=== PATIENT | female | born 1985 | race Caucasian/White ===

== ENCOUNTER 2020-06-13 15:21 | Emergency (ER) | payer BC ==
[2020-06-13 16:13] LABS: Absolute Lymphocytes (CBC) 1.9 K/uL (0.7-4.9); Basophils % 0.8 % (0-1.3); Hematocrit 34.4 % (36.0-45.0); Lymphocytes % 18.4 % (15.3-44.8); RBC Red Blood Cell Count 4.38 M/uL (3.86-4.86)
[2020-06-13 16:24] LABS: ALT/SGPT 16 U/L (12-78); AST/SGOT 14 U/L (15-37); Albumin 3.7 g/dL (3.4-5.0); Alkaline Phosphatase 62 U/L (45-117); BUN Blood Urea Nitrogen 19 mg/dL (7-18); Bicarbonate 27 mmol/L (21-32); Bilirubin Direct < 0.1 mg/dL (0-0.2); Bilirubin Total 0.3 mg/dL (0.2-1.0); Glucose Level 91 mg/dL (74-106); Lipase 302 U/L (73-393); Protein, Total 7.3 g/dL (6.4-8.2); Sodium Level 140 mmol/L (136-145)
[2020-06-13 16:31] LABS: Urine Blood NEGATIVE (NEG); Urine Glucose NEGATIVE (NEG); Urine Protein NEGATIVE (NEG); Urine Specific Gravity 1.025 (1.005-1.030); Urine pH 6.5 (5.0-7.0)
--- NOTE | 2020-06-13 16:34 | RAD REPORT ---
EXAM DESCRIPTION: CT - Stone Protocol - 06/13/2020 4:15 pm CLINICAL HISTORY: Abdominal pain. Left flank pain COMPARISON: Ultrasound June 13, 2020 TECHNIQUE: Computed axial tomography of the abdomen pelvis was obtained without oral or IV contrast. Lack of IV and oral contrast limits evaluation of solid organs, bowel, and vessels. Coronal reformat gregor images were obtained and reviewed. All CT scans are performed using dose optimization technique as appropriate and may include automated exposure control or mA/KV adjustment according to patient size. FINDINGS: Marked left hydronephrosis. A 10 millimeter calculus mid left ureter Hounsfield unit 1435. 2.8 centimeter right renal cyst. The liver, spleen, pancreas and adrenals appear grossly normal Postsurgical changes involve the stomach. Cholecystectomy There is no evidence of diverticulitis. The appendix appears normal IMPRESSION: A 10 millimeter calculus mid left ureter resulting in marked left hydronephrosis
--- NOTE | 2020-06-13 16:53 | ER ---
Nurse's Notes [facility] Name: Eva Rascon Age: 34 yrs Sex: Female : 1985 Arrival Date: 06/13/2020 Time: 15:22 Bed 20 [facility] MD: Diagnosis: Calculus of kidney with calculus of ureter Presentation: 06/13 15:27 Chief complaint: Patient states: "My left kidney is really hurting. I do have a history jd3 of kidney stones.". Coronavirus screen: At this time, the client does not indicate any symptoms associated with coronavirus-19. Ebola Screen: Patient negative for fever greater than or equal to 101.5 degrees Fahrenheit, and additional compatible Ebola Virus Disease symptoms. Initial Sepsis Screen: Does the patient meet any 2 criteria? No. Patient's initial sepsis screen is negative. Does the patient have a suspected source of infection? No. Patient's initial sepsis screen is negative. Risk Assessment: Do you want to hurt yourself or someone else? Patient reports no desire to harm self or others. Onset of symptoms was June 13, 2020. 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 - Social history:: Smoking status: Patient denies any tobacco usage or history of. Screenin:37 Abuse screen: Denies threats or abuse. Nutritional screening: No deficits noted. rb3 Tuberculosis screening: No symptoms or risk factors identified. Fall Risk None identified. Assessment: 15:37 General: Appears in no apparent distress. comfortable, Behavior is calm, cooperative, rb3 Denies fever. Pain: Complains of pain in left flank. Neuro: Level of Consciousness is awake, alert, obeys commands, Oriented to person, place, time, situation. Cardiovascular: Patient's skin is warm and dry. Respiratory: Airway is patent Respiratory effort is even, unlabored, Respiratory pattern is regular, symmetrical. GI: Reports nausea. : Reports Tea colored urine. Has been having discomfort off and on for some time. 16:10 Reassessment: Pt. went to CT. rb3 16:35 Reassessment: Patient appears in no apparent distress at this time. No changes from rb3 previously documented assessment. 17:17 Reassessment: Patient appears in no apparent distress at this time. Patient and/or rb3 family updated on plan of care and expected duration. Pain level reassessed. Patient is alert, oriented x 3, equal unlabored respirations, skin warm/dry/pink. Vital Signs: 15:30 BP 132 / 86; Pulse 76; Resp 16 S; Temp 97.9(TE); Pulse Ox 99% on R/A; Weight 98.88 kg jd3 (R); Height 5 ft. 8 in. (172.72 cm) (R); Pain 8/10; 16:10 rb3 16:30 BP 122 / 81; Pulse 64; Resp 17; Pulse Ox 100% ; rb3 17:19 BP 115 / 73; Pulse 58; Resp 16; Pulse Ox 100% ; rb3 15:30 Body Mass Index 33.15 (98.88 kg, 172.72 cm) jd3 16:[address] rb3 ED Course: 15:22 Patient arrived in ED. as 15:23 Samuel Gomes PA is PHCP. jmm 15:23 Gold Villanueva MD is Attending Physician. jmm 15:29 Triage completed. jd3 15:31 Arm band placed on. jd3 15:37 Tasia Stanley, RN is Primary Nurse. rb3 15:37 Patient has correct armband on for positive identification. Bed in low position. Call rb3 light in reach. Side rails up X 1. Pulse ox on. NIBP on. 15:56 Radiology exam delayed due to test not completed at this time. bq 15:58 Inserted saline lock: 20 gauge in left antecubital area, using aseptic technique. Blood rb3 collected. 16:15 CT Stone Protocol In Process Unspecified. EDMS 17:33 No provider procedures requiring assistance completed. IV discontinued, intact, rb3 bleeding controlled, No redness/swelling at site. Pressure dressing applied. Administered Medications: 17:16 Drug: Flomax 0.4 mg Route: PO; rb3 17:33 Follow up: Response: No adverse reaction rb3 Outcome: 16:53 Discharge ordered by . claire 17:33 Discharged to home ambulatory. rb3 17:33 Condition: stable 17:33 Discharge instructions given to patient, Instructed on discharge instructions, follow up and referral plans. medication usage, Demonstrated understanding of instructions, follow-up care, medications, Prescriptions given X 3. 17:34 Patient left the ED. rb3 Signatures: Dispatcher [employer] EDMS Samuel Gomes PA PA jmm Quilty, Betty bq Martinez, Amelia as Davies, Jonathon, RN RN jTasia Mabry RN RN rb3 Corrections: (The following items were deleted from the chart) 15:48 15:30 PMHx: None; albino rb3
--- NOTE | 2020-06-13 16:54 | EDPHYS ---
Physician Documentation [facility] Name: Eva Rascon Age: 34 yrs Sex: Female : 1985 Arrival Date: 06/13/2020 Time: 15:22 Bed 20 Private MD: ED Physician Gold Villanuvea HPI: 06/13 16:06 This 34 yrs old Female presents to ER via Ambulatory with complaints of Flank jmm Pain. 16:06 The patient complains of pain in the left flank. The pain radiates. Onset: The jmm symptoms/episode began/occurred chronic. Modifying factors: The symptoms are alleviated by nothing. the symptoms are aggravated by movement, palpation/percussion. Associated signs and symptoms: Pertinent positives: nausea. This is a 34 year old female with a history of kidney stones that presents to the ED with complaints of months of left flank pain and nausea. Patient states pain intensified today. Patient has seen nephrology and GIfor this issues. . 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 - Social history:: Smoking status: Patient denies any tobacco usage or history of. ROS: 16:06 Constitutional: Negative for fever, chills, and weight loss, Cardiovascular: Negative jmm for chest pain, palpitations, and edema, Respiratory: Negative for shortness of breath, cough, wheezing, and pleuritic chest pain. 16:06 Back: Positive for pain with movement. 16:06 All other systems are negative. Exam: 16:06 Constitutional: This is a well developed, well nourished patient who is awake, alert, jmm and in no acute distress. Head/Face: atraumatic. Eyes: EOMI, no conjunctival erythema appreciated ENT: Moist Mucus Membranes Neck: Trachea midline, Supple Chest/axilla: Normal chest wall appearance and motion. Cardiovascular: Regular rate and rhythm. No edema appreciated Respiratory: Normal respirations, no respiratory distress appreciated Abdomen/GI: Non distended, soft 16:06 Back: pain, that is mild, of the left low back. 16:06 Musculoskeletal/extremity: ROM: intact in all extremities. 16:06 Skin: Appearance: Color: normal in color. 16:06 Neuro: Orientation: is normal, Mentation: is normal, Memory: is normal. 16:06 Psych: Behavior/mood is pleasant, cooperative. Vital Signs: 15:30 BP 132 / 86; Pulse 76; Resp 16 S; Temp 97.9(TE); Pulse Ox 99% on R/A; Weight 98.88 kg jd3 (R); Height 5 ft. 8 in. (172.72 cm) (R); Pain 8/10; 16:10 rb3 16:30 BP 122 / 81; Pulse 64; Resp 17; Pulse Ox 100% ; rb3 17:19 BP 115 / 73; Pulse 58; Resp 16; Pulse Ox 100% ; rb3 15:30 Body Mass Index 33.15 (98.88 kg, 172.72 cm) jd3 16:[address] rb3 MDM: 15:37 Patient medically screened. [facility] 16:50 Data reviewed: vital signs, nurses notes. Counseling: I had a detailed discussion with [facility] the patient and/or guardian regarding: the historical points, exam findings, and any diagnostic results supporting the discharge/admit diagnosis, lab results, radiology results, the need for outpatient follow up, to return to the emergency department if symptoms worsen or persist or if there are any questions or concerns that arise at home. Refusal of service: The patient/guardian displays adequate decision making capability and despite a detailed discussion of alternatives, benefits, risks, and consequences refuses: transfer. ED course: Patient is alert and non toxic in appearance in the ED. No signs of sepsis. Patient is advised to follow up with urology and otherwise given strict return precautions. Patient understood and agrees with the plan of care. . 06/13 15:38 Order name: Basic Metabolic Panel; Complete Time: 16:30 [facility] 06/13 15:38 Order name: CBC with Diff; Complete Time: 16:18 [facility] 06/13 15:38 Order name: Hepatic Function; Complete Time: 16:30 [facility] 06/13 15:38 Order name: Lipase; Complete Time: 16:30 [facility] 06/13 16:19 Order name: Urine Dipstick--Ancillary (enter results) 06/13 16:19 Order name: Urine --Ancillary (enter results) 06/13 15:38 Order name: IV Saline Lock; Complete Time: 16:15 [facility] 06/13 15:38 Order name: Labs collected and sent; Complete Time: 16:15 [facility] 06/13 15:38 Order name: Urine Dipstick-Ancillary (obtain specimen); Complete Time: 16:15 [facility] 06/13 15:38 Order name: Urine Test (obtain specimen); Complete Time: 16:15 [facility] 06/13 15:38 Order name: CT Stone Protocol; Complete Time: 16:36 [facility] 06/13 16:20 Order name: Urine Dipstick-Ancillary; Complete Time: 16:36 [facility] 06/13 16:20 Order name: Urine --Ancillary; Complete Time: 16:36 EDMS Administered Medications: 17:16 Drug: Flomax 0.4 mg Route: PO; rb3 17:33 Follow up: Response: No adverse reaction rb3 Disposition: 18:22 Co-signature as Attending Physician, Gold Villanueva MD. rn Disposition: 06/13/20 16:53 Discharged to Home. Impression: Calculus of kidney with calculus of ureter. - Condition is Stable. - Discharge Instructions: Kidney Stones. - Prescriptions for Tylenol- Codeine #3 300-30 mg Oral Tablet - take 1 tablet by ORAL route every 6 hours As needed; 20 tablet. Flomax 0.4 mg Oral Capsule, Sust. Release 24 hr - take 1 capsule by ORAL route once daily 1/2 hour following the same meal each day; 30 capsule. Zofran ODT 4 mg Oral tablet,disintegrating - place 1 tablet by TRANSLINGUAL route every 4-6 hours; 20 tablet. - Medication Reconciliation Form, Thank You Letter, Antibiotic Education, Prescription Opioid Use, Work release form form. - Follow up: Private Physician; When: 2 - 3 days; Reason: Recheck today's complaints, Continuance of care, Re-evaluation by your physician. Signatures: Dispatcher [employer] EDNC Samuel Gomes PA PA jmm Nieto, Roman, MD MD rn Davies, Jonathon, RN RN jd3 Barber, Rebecca RN RN rb3 Corrections: (The following items were deleted from the chart) 15:48 15:30 PMHx: None; jd3 rb3 17:34 16:53 06/13/2020 16:53 Discharged to Home. Impression: Calculus of kidney with calculus rb3 of ureter. Condition is Stable. Forms are Medication Reconciliation Form, Thank You Letter, Antibiotic Education, Prescription Opioid Use. Follow up: Private Physician; When: 2 - 3 days; Reason: Recheck today's complaints, Continuance of care, Re-evaluation by your physician. claire
[2020-06-13] MEDS ORDERED: TAMSULOSIN 0.4 MG SR CAP ONE (17:32)
[2020-06-13 17:39] VITALS: TEMP 97.9
[2020-06-13 17:40] VITALS: O2SAT 100
[2020-06-13 17:41] VITALS: BP 115/73
== END 2020-06-13 17:34 | disposition home or self-care (01) ==
LOC: ER 15:21
DX: N20.2 Calculus of kidney with calculus of ureter (principal); Z87.442 Personal history of urinary calculi
CPT/HCPCS: 36415; 74176; 76377; 80048; 80076; 81003; 81025; 83690; 85025; 99284